=== PATIENT | male | born 2000 | race Caucasian/White ===

== ENCOUNTER 2022-06-07 21:33 | Emergency (ER) | payer OTHER, SELFPAY ==
[2022-06-07 21:40] VITALS: BP 132/78; PULSE 87; RESP 14; TEMP 37.1; O2SAT 99
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
--- NOTE | 2022-06-07 22:30 | PC.NURSE ---
patient wound to face cleansed with shur cleans, dried, and triple abx ointment applied. pt instructed on how to care for wounds at home. pt verbalized understanding.
[2022-06-07 22:37] VITALS: BP 112/88; PULSE 70; RESP 16; O2SAT 100
== END 2022-06-07 22:38 | disposition home or self-care (01) ==
LOC: ANHED 22:23
PROVIDERS: Emergency Provider Family Medicine
DX: S00.81XA Abrasion of other part of head, initial encounter (principal); V13.4XXA Pedal cycle driver injured in collision with car, pick-up truck or van in traffic accident, initial encounter; Y93.55 Activity, bike riding
CPT/HCPCS: 99283